=== PATIENT | female | born 1995 | race African-American/Black ===

== ENCOUNTER 2023-02-09 16:16 | Emergency (ER) | payer OTHER, SELFPAY ==
[2023-02-09 16:35] VITALS: BP 139/85; PULSE 71; RESP 16; TEMP 36.2; O2SAT 100; BMI 19.8
--- NOTE | 2023-02-09 17:20 | ED_ITS ---
HPI - Female Genitourinary <Katiana Ness PA-C - Last Filed: 02/09/23 18:25> General Chief complaint: OB/Uterine Contractions Stated complaint: dr haro miscarriage Time Seen by Provider: 02/09/23 16:38 History of Present Illness HPI Narrative: 27-year-old female with no past medical history presents to the ED with abnormal vaginal bleeding for 1 day. Patient states that her periods started yesterday, today she passed a large sac that patient thinks might have been a miscarriage. Patient denies any abdominal or pelvic pain or cramping. Patient denies fever, chills, nausea, vomiting, chest pain, shortness of breath, abdominal pain, pelvic cramping, dysuria, lightheadedness, dizziness, syncope. Patient states that she has not taken a test since her last period. LMP 01/11/2023. Review of Systems <Katiana Ness PA-C - Last Filed: 02/09/23 18:25> Review of Systems ROS Unobtainable: All systems reviewed & are unremarkable except as noted in HPI and below Constitutional Constitutional: Denies chills, Denies fatigue, Denies fever(s), Denies frequent falls, Denies lethargy and Denies weakness Eyes Eyes: Denies change in vision, Denies eye discharge, Denies irritation and Denies loss of vision ENT Ears, Nose, Mouth, and Throat: Denies change in voice, Denies dizziness, Denies neck pain, Denies sore throat and Denies throat swelling Cardiovascular Cardiovascular: Denies chest pain, Denies irregular heart rhythm, Denies lightheadedness, Denies palpitations, Denies dyspnea, Denies dyspnea on exertion and Denies orthopnea Respiratory Respiratory: Denies cough, Denies dyspnea, Denies dyspnea on exertion and Denies wheezing Gastrointestinal Gastrointestinal: Denies abdominal pain, Denies change in bowel habits, Denies diarrhea, Denies nausea and Denies vomiting Genitourinary Genitourinary: Reports abnormal menses, Reports abnormal vaginal bleeding, Denies hematuria, Denies flank pain, Denies urinary incontinence and Denies urinary urgency Musculoskeletal Musculoskeletal: Denies back pain, Denies muscle weakness, Denies neck pain, Denies numbness and Denies tingling Integumentary/Breasts Skin/Breast: Denies pruritus, Denies erythema, Denies rash and Denies wounds Neurologic Neurologic: Denies behavioral changes, Denies confusion, Denies dizziness, Denies frequent falls, Denies loss of vision, Denies numbness, Denies tingling and Denies weakness Psychiatric Psychiatric: Denies anxiety, Denies behavioral changes, Denies confusion, Denies depression, Denies homicidal ideation and Denies suicidal ideation Endocrine Endocrine: Denies fatigue, Denies flushing and Denies palpitations Hematologic/Lymphatic Hematologic/Lymphatic: Denies easy bruising Allergic/Immunologic Allergic/Immunologic: Denies urticaria, Denies throat swelling and Denies wheezing Exam <Katiana Ness PA-C - Last Filed: 02/09/23 18:25> Narrative Exam Narrative: Const General:?cooperative, healthy appearing and comfortable HENMI Head:?normal to inspection Ears:?hearing grossly normal bilaterally Nose:?external nose normal Face and sinus:?normal facial exam and sinuses nontender Mouth:?oral mucosae normal Throat:?posterior oropharynx normal Eyes General:?appearance normal, both eyes and all related structures Neck Neck:?normal visual inspection and no lymphadenopathy noted Resp Effort & Inspection:?normal respiratory effort Auscultation:?clear to auscultation bilaterally Cardio Rate:?regular rate Rhythm:?regular rhythm GI Abdomen is soft, nondistended, nontender to palpation. Neuro General:?patient alert, patient awake and patient oriented x3 Initial Vital Signs Initial Vital Signs: Vital Signs Temperature 97.1 F L 02/09/23 16:35 Pulse Rate 71 02/09/23 16:35 Respiratory Rate 16 02/09/23 16:35 Blood Pressure 139/85 02/09/23 16:35 Pulse Oximetry 100 02/09/23 16:35 Oxygen Delivery Method Room Air 02/09/23 16:35 <Bin Cárdenas DO - Last Filed: 02/09/23 18:26> Initial Vital Signs Initial Vital Signs: Vital Signs Temperature 97.1 F L 02/09/23 16:35 Pulse Rate 71 02/09/23 16:35 Respiratory Rate 16 02/09/23 16:35 Blood Pressure 139/85 02/09/23 16:35 Pulse Oximetry 100 02/09/23 16:35 Oxygen Delivery Method Room Air 02/09/23 16:35 Course <ASTRID Mcqueen Last Filed: 05/02/23 18:25> Vital Signs Vital signs: Vital Signs - 8 hr 02/09/23 16:35 02/09/23 18:21 Temperature 97.1 F L Pulse Rate 71 72 Respiratory Rate 16 Blood Pressure 139/85 122/65 Pulse Oximetry 100 99 Oxygen Delivery Method Room Air Room Air <Bin Cárdenas DO - Last Filed: 02/09/23 18:26> Vital Signs Vital signs: Vital Signs - 8 hr 02/09/23 16:35 02/09/23 18:21 Temperature 97.1 F L Pulse Rate 71 72 Respiratory Rate 16 Blood Pressure 139/85 122/65 Pulse Oximetry 100 99 Oxygen Delivery Method Room Air Room Air MDM - Female Genitourinary <Katiana Ness PA-C - Last Filed: 02/09/23 18:25> Lab Data Labs: Point of Care Testing Test Results Negative MDM Narrative Medical decision making narrative: 27-year-old female with no past medical history presents to the ED with abnormal vaginal bleeding for 1 day. Concern for intrauterine versus miscarriage versus dysfunctional uterine bleeding versus normal period vs other. Will obtain urine hCG to determine if . Urine hCG is negative. Patient's symptoms are likely due to abnormal vaginal bl eeding such as a clot. Patient agrees to follow-up with her OBGYN and PCP. ED return precautions were discussed with patient. Patient verbalized understanding. Medical records reviewed: Yes <DO Chaz Ramos Last Filed: 02/09/23 18:26> Lab Data Labs: Point of Care Testing Test Results Negative Discharge Plan Departure Patient Disposition: Home Clinical Impression: Abnormal vaginal bleeding Instructions: DI for Vaginal Bleeding Activity Restrictions/Additional Instructions: You were evaluated in the ED today for abnormal vaginal bleeding and possible miscarriage. Your urine test does not show a and therefore you did not suffer a miscarriage. You likely passed a clot that appeared similar to a sac. It is also reassuring that you have no pelvic cramping and that your bleeding is not heavier than normal. Please follow-up with your PCP or OBGYN for further evaluation of the abnormal bleeding. Return to the ED if you experience heavy bleeding, pain, shortness of breath. Stand Alone Forms: Patient Portal/API, Work Release Note <DO Chaz Ramos Last Filed: 02/09/23 18:26> Cosign ED Attending Cosignature Attestation: Dr Cárdenas Co-Sign Statement: I was available for consultation during this patient's emergency department visit. This chart is signed by myself for administrative purposes only. I did not have direct contact with this patient during this visit. They were seen independently by the APC.
[2023-02-09 18:21] VITALS: BP 122/65; PULSE 72; O2SAT 99
== END 2023-02-09 18:38 | disposition home or self-care (01) ==
PROVIDERS: Emergency Provider Student in an Organized Health Care Education/Training Program
DX: N93.9 Abnormal uterine and vaginal bleeding, unspecified (principal)
CPT/HCPCS: 81025; 99282

== ENCOUNTER 2023-04-22 08:45 | Emergency (ER) | payer OTHER, SELFPAY ==
[2023-04-22] VITALS (10 sets, daily range): BP systolic 109–124; BP diastolic 65–77; PULSE 66–92; RESP 20; TEMP 36.7; O2SAT 96–100; BMI 21.2
--- NOTE | 2023-04-22 09:14 | DI.US.S_ITS ---
PROCEDURE: US OB <= 14 WEEKS FETUS INDICATIONS: Preg+ 3 days ago, vag bleeding OUTSIDE/PRIOR DATING DATA: Last menstrual period (LMP): 03/15/2023. LMP-based estimated date of delivery (DUSTY): 12/20/2023. First dating scan (date and location): 04/22/2023. Estimated date of delivery (DUSTY) from first dating scan: 12/13/2022. TECHNIQUE: Real-time scanning was performed of the fetus and maternal pelvic organs, with image documentation. COMPARISON: None. FINDINGS: Embryo: Single live intrauterine is identified with crown-rump length measuring 6 mm corresponding to 6 weeks 2 days. Subchorionic hemorrhage is present measuring 9 x 11 x 5 mm. Heart rate: 128 beats per minute Maternal organs: Ovaries are unremarkable. Mild free fluid is present within the cul-de-sac.. IMPRESSION: Single live intrauterine with ultrasound gestational age of 6 weeks 2 days. Small subchorionic hemorrhage. We strive to produce accurate, complete, and clear reports of imaging services. To assist us in improving patient care, this report was composed using standard report templates and voice recognition software. Therefore, it may contain abnormal punctuation, insertions and/or omissions. Occasional wrong-word or sound-alike substitutions may occur. Though we review the report and make efforts to correct it, we do recommend that the report be read carefully in proper context to recognize any text inaccuracies. Dictated by: Kim Saldivar M.D. on 04/22/2023 at 10:36 Approved by: Kim Saldivar M.D. on 04/22/2023 at 10:38
[2023-04-22 09:49] LABS: Add Manual Diff / Slide Review NO; Basophils Absolute Auto 0 /uL (0-100); Basophils Percent Auto 0.6 % (0-2); Eosinophils Absolute Auto 400 /uL (0-450); Eosinophils Percent Auto 8.3 % (2-4); Hematocrit 34.1 % (36-46); Hemoglobin 11.2 g/dL (12.0-16.0); Lymphocytes Absolute Auto 1400 /uL (1100-4500); Lymphocytes Percent Auto 28.1 % (25-40); Mean Corpuscular Hemoglobin 28.4 PG (26-34); Mean Corpuscular Volume 86.1 fL (80-100); Monocytes Absolute Auto 600 /uL (0-900); Monocytes Percent Auto 11.8 % (3-14); Neutrophils Absolute Auto 2600 /uL (1500-7000); Neutrophils Percent Auto 51.2 % (50-75); Platelet Count 161 X10^3/uL (150-400); Red Blood Cell Count 3.96 X10^6/uL (4.0-5.2); Red Cell Distribution Width 15.8 % (11.6-14.8); White Blood Cell Count 5.1 X10^3/uL (4.5-11.0)
[2023-04-22 10:51] LABS: Alanine Aminotransferase 17 IU/L (<35); Albumin 3.9 g/dL (3.5-5.0); Albumin Globulin Ratio 1.1 (1.0-2.8); Alkaline Phosphatase 45 U/L (38-126); Aspartate Aminotransferase 33 IU/L (14-36); BUN Creatinine Ratio 8.6 (6-22); Bilirubin Total 0.7 mg/dL (0.2-1.3); Blood Urea Nitrogen 5 mg/dL (7-17); Calcium 8.6 mg/dL (8.4-10.2); Carbon Dioxide 21 mmol/L (22-32); Chloride 107 mmol/L (98-107); Estimated Glomerular Filt Rate > 60 mL/min (>60); Globulin 3.4 g/dL (1.7-4.1); Glucose 85 mg/dL (70-100); HEMOLYSIS < 15 (0-50); Potassium 3.6 mmol/L (3.4-5.1); Sodium 136 mmol/L (137-145); Total Protein 7.3 g/dL (6.3-8.2)
--- NOTE | 2023-04-22 11:01 | ED_ITS ---
HPI - General Chief complaint: Vaginal Bleeding Stated complaint: cramping/bleeding after + preg test Time Seen by Provider: 04/22/23 10:36 Source: patient and family Mode of arrival: Ambulatory Limitations: no limitations History of Present Illness HPI Narrative: 27-year-old female with no reported past medical history presents to the ED with vaginal bleeding during . Patient states that she had 1 episode of a small amount of bleeding yesterday accompanied by some pelvic cramping. Since then, patient has symptoms have resolved and she no longer has bleeding or pelvic cramping. Patient denies any other symptoms including fevers, chills, chest pain, shortness of breath, abdominal pain, nausea, vomiting, dysuria, lightheadedness, dizziness, syncope. Patient states that she took a home test 3 days ago which was positive. LMP 03/15/2023. Related Data Allergies Allergy/AdvReac Type Severity Reaction Status Date / Time No Known Drug Allergies Allergy Verified 04/22/23 10:45 Review of Systems Review of Systems ROS Unobtainable: All systems reviewed & are unremarkable except as noted in HPI and below Constitutional Constitutional: Denies chills, Denies fatigue, Denies fever(s), Denies frequent falls, Denies lethargy and Denies weakness Eyes Eyes: Denies change in vision, Denies eye discharge, Denies irritation and Denies loss of vision ENT Ears, Nose, Mouth, and Throat: Denies change in voice, Denies dizziness, Denies neck pain, Denies sore throat and Denies throat swelling Cardiovascular Cardiovascular: Denies chest pain, Denies irregular heart rhythm, Denies lightheadedness, Denies palpitations, Denies dyspnea, Denies dyspnea on exertion and Denies orthopnea Respiratory Respiratory: Denies cough, Denies dyspnea, Denies dyspnea on exertion and Denies wheezing Gastrointestinal Gastrointestinal: Denies abdominal pain, Denies change in bowel habits, Denies diarrhea, Denies nausea and Denies vomiting Genitourinary Genitourinary: Reports abnormal vaginal bleeding, Denies hematuria, Reports pelvic pain, Denies flank pain, Denies urinary incontinence and Denies urinary urgency Musculoskeletal Musculoskeletal: Denies back pain, Denies muscle weakness, Denies neck pain, Denies numbness and Denies tingling Integumentary/Breasts Skin/Breast: Denies pruritus, Denies erythema, Denies rash and Denies wounds Neurologic Neurologic: Denies behavioral changes, Denies confusion, Denies dizziness, Denies frequent falls, Denies loss of vision, Denies numbness, Denies tingling and Denies weakness Psychiatric Psychiatric: Denies anxiety, Denies behavioral changes, Denies confusion, Denies depression, Denies homicidal ideation and Denies suicidal ideation Endocrine Endocrine: Denies fatigue, Denies flushing and Denies palpitations Hematologic/Lymphatic Hematologic/Lymphatic: Denies easy bruising Allergic/Immunologic Allergic/Immunologic: Denies urticaria, Denies throat swelling and Denies wheezing Exam Narrative Exam Narrative: Const General:?cooperative, healthy appearing and comfortable [facility] Head:?normal to inspection Ears:?hearing grossly normal bilaterally Nose:?external nose normal Face and sinus:?normal facial exam and sinuses nontender Mouth:?oral mucosae normal Throat:?posterior oropharynx normal Eyes General:?appearance normal, both eyes and all related structures Neck Neck:?normal visual inspection and no lymphadenopathy noted Resp Effort & Inspection:?normal respiratory effort Auscultation:?clear to auscultation bilaterally Cardio Rate:?regular rate Rhythm:?regular rhythm GI Abdomen is soft, nondistended, nontender to palpation. Neuro General:?patient alert, patient awake and patient oriented x3 Initial Vital Signs Initial Vital Signs: Vital Signs Pulse Rate 86 04/22/23 08:56 Pulse Oximetry 99 04/22/23 08:56 Course Orders Ordered: ED Orders 04/22/23 10:19 Comprehensive Metabolic Panel Stat HCG Quantitative /Beta subunit Stat Vital Signs Vital signs: Vital Signs - 8 hr 04/22/23 11:30 04/22/23 11:30 04/22/23 12:00 Pulse Rate 74 Blood Pressure 112/70 109/68 Pulse Oximetry 97 04/22/23 12:00 Pulse Rate 89 Blood Pressure Pulse Oximetry 97 MDM - OB/Uterine Contractions Lab Data 04/22/23 09:30 04/22/23 10:19 Labs: Lab Results 04/22/23 04/22/23 04/22/23 Range/Units 09:30 09:30 10:19 WBC 5.1 (4.5-11.0) X10^3/uL RBC 3.96 L (4.0-5.2) X10^6/uL Hgb 11.2 L (12.0-16.0) g/dL Hct 34.1 L (36-46) % MCV 86.1 (80-100) fL MCH 28.4 (26-34) PG MCHC 33.0 (30-36) % RDW 15.8 H (11.6-14.8) % Plt Count 161 (150-400) X10^3/uL Neut % (Auto) 51.2 (50-75) % Lymph % (Auto) 28.1 (25-40) % [place] % (Auto) 11.8 (3-14) % Eos % (Auto) 8.3 H (2-4) % Baso % (Auto) 0.6 (0-2) % Neut # (Auto) 2600 (0123-0694) /uL Lymph # (Auto) 1400 (9887-2105) /uL [place] # (Auto) 600 (0-900) /uL Eos # (Auto) 400 (0-450) /uL Baso # (Auto) 0 (0-100) /uL Sodium 136 L (137-145) mmol/L Potassium 3.6 (3.4-5.1) mmol/L Chloride 107 (98-107) mmol/L Carbon Dioxide 21 L (22-32) mmol/L BUN 5 L (7-17) mg/dL Creatinine 0.58 (0.52-1.04) mg/dL Estimated GFR > 60 (>60) mL/min BUN/Creatinine Ratio 8.6 (6-22) Glucose 85 (70-100) mg/dL Calcium 8.6 (8.4-10.2) mg/dL Total Bilirubin 0.7 (0.2-1.3) mg/dL AST 33 (14-36) IU/L ALT 17 (<35) IU/L Alkaline Phosphatase 45 (38-126) U/L Total Protein 7.3 (6.3-8.2) g/dL Albumin 3.9 (3.5-5.0) g/dL Globulin 3.4 (1.7-4.1) g/dL Albumin/Globulin Ratio 1.1 (1.0-2.8) HCG, Quant 3384.9 mIU/mL Blood Type A Positive Antibody Screen Cancelled Urine Dip Bedside Urine Glucose Negative Bedside Urine Bilirubin - Negative Bedside Urine Ketone - Negative Urine Specific [place] 1.005 Bedside Urine Occult Blood - Negative Bedside Urine pH 7 Bedside Urine Protein - Negative Bedside Urine Urobilinogen - Negative Bedside Urine Nitrite - Negative Bedside Urine Leukocytes - Negative Esterase MDM Narrative Medical decision making narrative: 27-year-old female with no reported past medical history presents to the ED with vaginal bleeding during . Concern for intrauterine versus ectopic versus threatened miscarriage versus other. Will obtain labs, quantitative HCG, type and screen, UA, ultrasound. Labs within normal limits. Quantitative hCG 3384. UA without UTI. Patient is blood type A positive, no indication for Rhogam. ultrasound shows a single live intrauterine corresponding to a gestational age of 6 weeks and 2 days. There is a subchorionic hemorrhage that is measuring 9 x 11 x 5 mm. heart rate is 128 beats per minute. Discussed findings with patient that a subchorionic bleed could be benign and her could progress normally, however there is still a possibility of miscarriage. Patient agrees to follow-up with her OBGYN to further track the and trend the hCG. ED return precautions were discussed with patient. Patient verbalized understanding. Medical records reviewed: Yes Discharge Plan Departure Patient Disposition: Home Clinical Impression: Vaginal bleeding during Instructions: DI for Vaginal Bleeding During Activity Restrictions/Additional Instructions: You were evaluated in the ED today for vaginal bleeding during . The ultrasound does show a live intrauterine that is dated at 6 weeks and 2 days. There is also some subchorionic hemorrhage which is the likely cause of your bleeding today. While a subchorionic hemorrhage could be benign, and your can progress normally, there is also a possibility of a miscarriage. Your hCG quantitative today was 3384. Please follow-up with your OBGYN so they can continue to track your and the hCG. Return to the ED if you have worsening symptoms, increased bleeding, cramping. Referrals: Provider,Arcelia GRIFFITH [Primary Care Provider] - Stand Alone Forms: Patient Portal/API, Work Release Note
[2023-04-22 11:09] LABS: HCG Quantitative /Beta subunit 3384.9 mIU/mL
== END 2023-04-22 12:14 | disposition home or self-care (01) ==
PROVIDERS: Emergency Medicine; Emergency Provider Student in an Organized Health Care Education/Training Program
DX: O20.9 Hemorrhage in early pregnancy, unspecified (principal); Z3A.01 Less than 8 weeks gestation of pregnancy
CPT/HCPCS: 36415; 76801; 76817; 80053; 81003; 84702; 85025; 86900; 86901; 99284

== ENCOUNTER 2023-05-04 11:59 | Emergency (ER) | payer OTHER, SELFPAY ==
[2023-05-04 12:18] VITALS: BP 105/64; PULSE 77; RESP 18; TEMP 36.6; O2SAT 100; BMI 21.6
--- NOTE | 2023-05-04 12:45 | DI.US.S_ITS ---
PROCEDURE: US OB <= 14 WEEKS FETUS INDICATIONS: BLEEDING, CRAMPING OUTSIDE/PRIOR DATING DATA: Last menstrual period (LMP): 03/15/2023 LMP-based estimated date of delivery (DUSTY): 12/20/2023 First dating scan (date and location): 04/22/2023 Estimated date of delivery (DUSTY) from first dating scan: 12/14/2023 The calculations are made using the ultrasound DUSTY of 12/14/2023 TECHNIQUE: Real-time scanning was performed of the fetus and maternal pelvic organs, with image documentation. COMPARISON: [facility], OB <= 14 WEEKS FETUS, 04/22/2023, 9:41. FINDINGS: Embryo: Intrauterine gestational sac is again seen with pole. [place]-rump length is 1.5 cm, compatible with an estimated gestational age of 7 weeks 6 days (estimated gestational age by prior ultrasound is 8 weeks 0 days). Heart rate: No cardiac activity is seen. Maternal organs: Ovaries were not evaluated. IMPRESSION: Intrauterine is seen with no cardiac activity, consistent with early failure. Approved by: Dale Alex M.D. on 05/04/2023 at 14:27
[2023-05-04 13:19] LABS: Add Manual Diff / Slide Review NO; Basophils Absolute Auto 0 /uL (0-100); Basophils Percent Auto 0.6 % (0-2); Eosinophils Absolute Auto 400 /uL (0-450); Eosinophils Percent Auto 5.4 % (2-4); Hematocrit 36.1 % (36-46); Hemoglobin 11.8 g/dL (12.0-16.0); Lymphocytes Absolute Auto 1900 /uL (1100-4500); Lymphocytes Percent Auto 28.6 % (25-40); Mean Corpuscular HGB Conc 32.7 % (30-36); Mean Corpuscular Hemoglobin 28.4 PG (26-34); Mean Corpuscular Volume 86.8 fL (80-100); Monocytes Absolute Auto 600 /uL (0-900); Monocytes Percent Auto 9.2 % (3-14); Neutrophils Absolute Auto 3800 /uL (1500-7000); Neutrophils Percent Auto 56.2 % (50-75); Platelet Count 167 X10^3/uL (150-400); Red Blood Cell Count 4.16 X10^6/uL (4.0-5.2); Red Cell Distribution Width 15.2 % (11.6-14.8); White Blood Cell Count 6.8 X10^3/uL (4.5-11.0)
[2023-05-04 13:22] LABS: Bacteria Urine None Seen; Culture Indicated Urine Cult Not Indicated; RBC Urine 5-10/HPF (0-5/HPF); Squamous Epithelial Cell Urine 0-1 /HPF (0-5/HPF); WBC Urine 0-1/HPF (0-5/HPF)
[2023-05-04 13:23] LABS: Alanine Aminotransferase 19 IU/L (<35); Albumin 4.4 g/dL (3.5-5.0); Albumin Globulin Ratio 1.2 (1.0-2.8); Alkaline Phosphatase 47 U/L (38-126); Aspartate Aminotransferase 35 IU/L (14-36); BUN Creatinine Ratio 11.5 (6-22); Bilirubin Total 0.5 mg/dL (0.2-1.3); Blood Urea Nitrogen 7 mg/dL (7-17); Calcium 9.1 mg/dL (8.4-10.2); Carbon Dioxide 24 mmol/L (22-32); Chloride 103 mmol/L (98-107); Estimated Glomerular Filt Rate > 60 mL/min (>60); Globulin 3.7 g/dL (1.7-4.1); Glucose 83 mg/dL (70-100); HEMOLYSIS < 15 (0-50); Potassium 3.9 mmol/L (3.4-5.1); Sodium 136 mmol/L (137-145); Total Protein 8.1 g/dL (6.3-8.2)
[2023-05-04 13:39] LABS: HCG Quantitative /Beta subunit 5471.1 mIU/mL
[2023-05-04 15:49] VITALS: BP 109/63; PULSE 78; RESP 18; O2SAT 96
--- NOTE | 2023-05-04 18:51 | ED_ITS ---
HPI - <Katiana Ness PA-C - Last Filed: 05/04/23 18:57> General Chief complaint: OB/Uterine Contractions Stated complaint: complications with Time Seen by Provider: 05/04/23 15:30 Source: patient Mode of arrival: Ambulatory Limitations: no limitations History of Present Illness HPI Narrative: 27-year-old female with no reported past medical history presents to the ED with vaginal bleeding during . Patient was seen in the ED on 04/22/2023 for the same complaint, ultrasound was obtained which showed a live intrauterine that was dated at 6 weeks and 2 days' gestation. There was also some subchorionic hemorrhage which was likely the cause of patient's bleeding. Patient thereafter consulted her OBGYN, a repeat ultrasound and hCG were obtained. Patient stated that her bleeding ceased after that last visit, however last night against started experiencing pelvic cramping and vaginal bleeding. Patient denies fever, chills, nausea, vomiting. Patient is blood type A positive. Related Data Allergies Allergy/AdvReac Type Severity Reaction Status Date / Time No Known Drug Allergies Allergy Verified 04/22/23 10:45 Review of Systems <Katiana Ness PA-C - Last Filed: 05/04/23 18:57> Review of Systems ROS Unobtainable: All systems reviewed & are unremarkable except as noted in HPI and below Constitutional Constitutional: Denies chills, Denies fatigue, Denies fever(s), Denies frequent falls, Denies lethargy and Denies weakness Eyes Eyes: Denies change in vision, Denies eye discharge, Denies irritation and Denies loss of vision ENT Ears, Nose, Mouth, and Throat: Denies change in voice, Denies dizziness, Denies neck pain, Denies sore throat and Denies throat swelling Cardiovascular Cardiovascular: Denies chest pain, Denies irregular heart rhythm, Denies lightheadedness, Denies palpitations, Denies dyspnea, Denies dyspnea on exertion and Denies orthopnea Respiratory Respiratory: Denies cough, Denies dyspnea, Denies dyspnea on exertion and Denies wheezing Gastrointestinal Gastrointestinal: Denies abdominal pain, Denies change in bowel habits, Denies diarrhea, Denies nausea and Denies vomiting Genitourinary Genitourinary: Reports abnormal vaginal bleeding, Denies hematuria, Reports pelvic pain, Denies flank pain, Denies urinary incontinence and Denies urinary urgency Musculoskeletal Musculoskeletal: Denies back pain, Denies muscle weakness, Denies neck pain, Denies numbness and Denies tingling Integumentary/Breasts Skin/Breast: Denies pruritus, Denies erythema, Denies rash and Denies wounds Neurologic Neurologic: Denies behavioral changes, Denies confusion, Denies dizziness, Denies frequent falls, Denies loss of vision, Denies numbness, Denies tingling and Denies weakness Psychiatric Psychiatric: Denies anxiety, Denies behavioral changes, Denies confusion, Denies depression, Denies homicidal ideation and Denies suicidal ideation Endocrine Endocrine: Denies fatigue, Denies flushing and Denies palpitations Hematologic/Lymphatic Hematologic/Lymphatic: Denies easy bruising Allergic/Immunologic Allergic/Immunologic: Denies urticaria, Denies throat swelling and Denies wheezing Exam <Katiana Ness PA-C - Last Filed: 05/04/23 18:57> Narrative Exam Narrative: Const General:?cooperative, healthy appearing and comfortable [facility] Head:?normal to inspection Ears:?hearing grossly normal bilaterally Nose:?external nose normal Face and sinus:?normal facial exam and sinuses nontender Mouth:?oral mucosae normal Throat:?posterior oropharynx normal Eyes General:?appearance normal, both eyes and all related structures Neck Neck:?normal visual inspection and no lymphadenopathy noted Resp Effort & Inspection:?normal respiratory effort Auscultation:?clear to auscultation bilaterally Cardio Rate:?regular rate Rhythm:?regular rhythm GI Abdomen is soft, nondistended. No tenderness to palpation. Neuro General:?patient alert, patient awake and patient oriented x3 Initial Vital Signs Initial Vital Signs: Vital Signs Temperature 97.8 F 05/04/23 12:18 Pulse Rate 77 05/04/23 12:18 Respiratory Rate 18 05/04/23 12:18 Blood Pressure 105/64 05/04/23 12:18 Pulse Oximetry 100 05/04/23 12:18 Oxygen Delivery Method Room Air 05/04/23 12:18 <Leland Badillo MD - Last Filed: 05/05/23 07:14> Initial Vital Signs Initial Vital Signs: Vital Signs Temperature 97.8 F 05/04/23 12:18 Pulse Rate 77 05/04/23 12:18 Respiratory Rate 18 05/04/23 12:18 Blood Pressure 105/64 05/04/23 12:18 Pulse Oximetry 100 05/04/23 12:18 Oxygen Delivery Method Room Air 05/04/23 12:18 Course <Katiana Ness PA-C - Last Filed: 05/04/23 18:57> Orders Ordered: ED Orders 05/04/23 12:45 US OB <= 14 weeks fetus Stat 05/04/23 12:55 Urine Microscopic Stat 05/04/23 13:00 Complete Blood Count AUTO DIFF Stat Comprehensive Metabolic Panel Stat HCG Quantitative /Beta subunit Stat Type and Screen Stat Vital Signs Vital signs: Vital Signs - 8 hr 05/04/23 12:18 05/04/23 15:49 Temperature 97.8 F Pulse Rate 77 78 Respiratory Rate 18 18 Blood Pressure 105/64 109/63 Pulse Oximetry 100 96 Oxygen Delivery Method Room Air Room Air <Leland Badillo MD - Last Filed: 05/05/23 07:14> Orders Ordered: ED Orders 05/04/23 12:45 US OB <= 14 weeks fetus Stat 05/04/23 12:55 Urine Microscopic Stat 05/04/23 13:00 Complete Blood Count AUTO DIFF Stat Comprehensive Metabolic Panel Stat HCG Quantitative /Beta subunit Stat Type and Screen Stat Vital Signs Vital signs: Vital Signs - 8 hr 05/04/23 12:18 05/04/23 15:49 Temperature 97.8 F Pulse Rate 77 78 Respiratory Rate 18 18 Blood Pressure 105/64 109/63 Pulse Oximetry 100 96 Oxygen Delivery Method Room Air Room Air MDM - OB/Uterine Contractions <Katiana Ness PA-C - Last Filed: 05/04/23 18:57> Lab Data 05/04/23 13:00 05/04/23 13:00 Labs: Lab Results 05/04/23 05/04/23 05/04/23 Range/Units 12:55 13:00 13:00 WBC 6.8 (4.5-11.0) X10^3/uL RBC 4.16 (4.0-5.2) X10^6/uL Hgb 11.8 L (12.0-16.0) g/dL Hct 36.1 (36-46) % MCV 86.8 (80-100) fL MCH 28.4 (26-34) PG MCHC 32.7 (30-36) % RDW 15.2 H (11.6-14.8) % Plt Count 167 (150-400) X10^3/uL Neut % (Auto) 56.2 (50-75) % Lymph % (Auto) 28.6 (25-40) % [place] % (Auto) 9.2 (3-14) % Eos % (Auto) 5.4 H (2-4) % Baso % (Auto) 0.6 (0-2) % Neut # (Auto) 3800 (3503-0073) /uL Lymph # (Auto) 1900 (5477-6022) /uL [place] # (Auto) 600 (0-900) /uL Eos # (Auto) 400 (0-450) /uL Baso # (Auto) 0 (0-100) /uL Sodium 136 L (137-145) mmol/L Potassium 3.9 (3.4-5.1) mmol/L Chloride 103 (98-107) mmol/L Carbon Dioxide 24 (22-32) mmol/L BUN 7 (7-17) mg/dL Creatinine 0.61 (0.52-1.04) mg/dL Estimated GFR > 60 (>60) mL/min BUN/Creatinine Ratio 11.5 (6-22) Glucose 83 (70-100) mg/dL Calcium 9.1 (8.4-10.2) mg/dL Total Bilirubin 0.5 (0.2-1.3) mg/dL AST 35 (14-36) IU/L ALT 19 (<35) IU/L Alkaline Phosphatase 47 (38-126) U/L Total Protein 8.1 (6.3-8.2) g/dL Albumin 4.4 (3.5-5.0) g/dL Globulin 3.7 (1.7-4.1) g/dL Albumin/Globulin Ratio 1.2 (1.0-2.8) HCG, Quant 5471.1 mIU/mL Urine RBC 5-10/hpf H (0-5/HPF) Urine WBC 0-1/hpf (0-5/HPF) Ur Squamous Epith Cells 0-1 /hpf (0-5/HPF) Urine Bacteria None seen (None) Ur Culture Indicated? Cult not indicated Blood Type Antibody Screen 05/04/23 Range/Units 13:00 WBC (4.5-11.0) X10^3/uL RBC (4.0-5.2) X10^6/uL Hgb (12.0-16.0) g/dL Hct (36-46) % MCV (80-100) fL MCH (26-34) PG MCHC (30-36) % RDW (11.6-14.8) % Plt Count (150-400) X10^3/uL Neut % (Auto) (50-75) % Lymph % (Auto) (25-40) % [place] % (Auto) (3-14) % Eos % (Auto) (2-4) % Baso % (Auto) (0-2) % Neut # (Auto) (0390-9241) /uL Lymph # (Auto) (9902-9381) /uL [place] # (Auto) (0-900) /uL Eos # (Auto) (0-450) /uL Baso # (Auto) (0-100) /uL Sodium (137-145) mmol/L Potassium (3.4-5.1) mmol/L Chloride (98-107) mmol/L Carbon Dioxide (22-32) mmol/L BUN (7-17) mg/dL Creatinine (0.52-1.04) mg/dL Estimated GFR (>60) mL/min BUN/Creatinine Ratio (6-22) Glucose (70-100) mg/dL Calcium (8.4-10.2) mg/dL Total Bilirubin (0.2-1.3) mg/dL AST (14-36) IU/L ALT (<35) IU/L Alkaline Phosphatase (38-126) U/L Total Protein (6.3-8.2) g/dL Albumin (3.5-5.0) g/dL Globulin (1.7-4.1) g/dL Albumin/Globulin Ratio (1.0-2.8) HCG, Quant mIU/mL Urine RBC (0-5/HPF) Urine WBC (0-5/HPF) Ur Squamous Epith Cells (0-5/HPF) Urine Bacteria (None) Ur Culture Indicated? Blood Type A Positive Antibody Screen Negative Urine Dip Bedside Urine Glucose Negative Bedside Urine Bilirubin - Negative Bedside Urine Ketone - Negative Urine Specific [place] 1.005 Bedside Urine Occult Blood +++ Bedside Urine pH 7.5 Bedside Urine Protein - Negative Bedside Urine Urobilinogen - Negative Bedside Urine Nitrite - Negative Bedside Urine Leukocytes - Negative Esterase MDM Narrative Medical decision making narrative: 27-year-old female with no reported past medical history presents to the ED with vaginal bleeding during . Concern for intrauterine versus threatened miscarriage versus other. Will obtain labs, quantitative HCG, UA, ultrasound. Labs and urine within normal limits. HCG quantitative is 5471. Ultrasound shows a intrauterine with no cardiac activity, consistent with early failure. Findings discussed with patient. She agrees to follow-up with her OBGYN as soon as possible for further evaluation and potential interventions. ED return precautions were discussed with patient. Patient verbalized understanding. Medical records reviewed: Yes <Leland Badillo MD - Last Filed: 05/05/23 07:14> Lab Data Labs: Lab Results 05/04/23 05/04/23 05/04/23 Range/Units 12:55 13:00 13:00 WBC 6.8 (4.5-11.0) X10^3/uL RBC 4.16 (4.0-5.2) X10^6/uL Hgb 11.8 L (12.0-16.0) g/dL Hct 36.1 (36-46) % MCV 86.8 (80-100) fL MCH 28.4 (26-34) PG MCHC 32.7 (30-36) % RDW 15.2 H (11.6-14.8) % Plt Count 167 (150-400) X10^3/uL Neut % (Auto) 56.2 (50-75) % Lymph % (Auto) 28.6 (25-40) % [place] % (Auto) 9.2 (3-14) % Eos % (Auto) 5.4 H (2-4) % Baso % (Auto) 0.6 (0-2) % Neut # (Auto) 3800 (4376-7296) /uL Lymph # (Auto) 1900 (3501-6949) /uL [place] # (Auto) 600 (0-900) /uL Eos # (Auto) 400 (0-450) /uL Baso # (Auto) 0 (0-100) /uL Sodium 136 L (137-145) mmol/L Potassium 3.9 (3.4-5.1) mmol/L Chloride 103 (98-107) mmol/L Carbon Dioxide 24 (22-32) mmol/L BUN 7 (7-17) mg/dL Creatinine 0.61 (0.52-1.04) mg/dL Estimated GFR > 60 (>60) mL/min BUN/Creatinine Ratio 11.5 (6-22) Glucose 83 (70-100) mg/dL Calcium 9.1 (8.4-10.2) mg/dL Total Bilirubin 0.5 (0.2-1.3) mg/dL AST 35 (14-36) IU/L ALT 19 (<35) IU/L Alkaline Phosphatase 47 (38-126) U/L Total Protein 8.1 (6.3-8.2) g/dL Albumin 4.4 (3.5-5.0) g/dL Globulin 3.7 (1.7-4.1) g/dL Albumin/Globulin Ratio 1.2 (1.0-2.8) HCG, Quant 5471.1 mIU/mL Urine RBC 5-10/hpf H (0-5/HPF) Urine WBC 0-1/hpf (0-5/HPF) Ur Squamous Epith Cells 0-1 /hpf (0-5/HPF) Urine Bacteria None seen (None) Ur Culture Indicated? Cult not indicated Blood Type Antibody Screen 05/04/23 Range/Units 13:00 WBC (4.5-11.0) X10^3/uL RBC (4.0-5.2) X10^6/uL Hgb (12.0-16.0) g/dL Hct (36-46) % MCV (80-100) fL MCH (26-34) PG MCHC (30-36) % RDW (11.6-14.8) % Plt Count (150-400) X10^3/uL Neut % (Auto) (50-75) % Lymph % (Auto) (25-40) % [place] % (Auto) (3-14) % Eos % (Auto) (2-4) % Baso % (Auto) (0-2) % Neut # (Auto) (7448-0603) /uL Lymph # (Auto) (4375-1685) /uL [place] # (Auto) (0-900) /uL Eos # (Auto) (0-450) /uL Baso # (Auto) (0-100) /uL Sodium (137-145) mmol/L Potassium (3.4-5.1) mmol/L Chloride (98-107) mmol/L Carbon Dioxide (22-32) mmol/L BUN (7-17) mg/dL Creatinine (0.52-1.04) mg/dL Estimated GFR (>60) mL/min BUN/Creatinine Ratio (6-22) Glucose (70-100) mg/dL Calcium (8.4-10.2) mg/dL Total Bilirubin (0.2-1.3) mg/dL AST (14-36) IU/L ALT (<35) IU/L Alkaline Phosphatase (38-126) U/L Total Protein (6.3-8.2) g/dL Albumin (3.5-5.0) g/dL Globulin (1.7-4.1) g/dL Albumin/Globulin Ratio (1.0-2.8) HCG, Quant mIU/mL Urine RBC (0-5/HPF) Urine WBC (0-5/HPF) Ur Squamous Epith Cells (0-5/HPF) Urine Bacteria (None) Ur Culture Indicated? Blood Type A Positive Antibody Screen Negative Urine Dip Bedside Urine Glucose Negative Bedside Urine Bilirubin - Negative Bedside Urine Ketone - Negative Urine Specific [place] 1.005 Bedside Urine Occult Blood +++ Bedside Urine pH 7.5 Bedside Urine Protein - Negative Bedside Urine Urobilinogen - Negative Bedside Urine Nitrite - Negative Bedside Urine Leukocytes - Negative Esterase Discharge Plan Departure Patient Disposition: Home Clinical Impression: Vaginal bleeding during Instructions: DI for Miscarriage Activity Restrictions/Additional Instructions: You were evaluated in the ED today for some pelvic cramping and vaginal bleeding during . The ultrasound shows a gestational sac with a pole but no heartbeat. It is likely that you are experiencing a miscarriage. Please follow-up with your OBGYN as soon as possible for further evaluation for necessary interventions. Return to the ED if you have worsening symptoms. Referrals: Provider,Arcelia GRIFFITH [Primary Care Provider] - Stand Alone Forms: Patient Portal/API <Leland Badillo MD - Last Filed: 05/05/23 07:14> Cosign ED Attending Heath Attestation: I was immediately available in the department for consultation. ?This documentation has been reviewed and I agree with assessment and plan. Supervised by Leland Badillo MD
== END 2023-05-04 15:49 | disposition home or self-care (01) ==
PROVIDERS: Emergency Medicine; Emergency Provider Student in an Organized Health Care Education/Training Program
DX: O20.9 Hemorrhage in early pregnancy, unspecified (principal); R10.2 Pelvic and perineal pain; Z3A.01 Less than 8 weeks gestation of pregnancy
CPT/HCPCS: 36415; 76801; 76817; 80053; 81003; 81015; 84702; 85025; 86850; 86900; 86901; 99281; 99284

== ENCOUNTER → 2023-05-24 16:57 | Outpatient (CLI) | payer OTHER, SELFPAY ==
[2023-05-24 18:20] LABS: Hematocrit 33.8 % (36-46); Hemoglobin 11.3 g/dL (12.0-16.0); Mean Corpuscular HGB Conc 33.5 % (30-36); Mean Corpuscular Volume 86.7 fL (80-100); Red Cell Distribution Width 14.6 % (11.6-14.8); White Blood Cell Count 6.2 X10^3/uL (4.5-11.0)
[2023-05-24 18:47] LABS: Platelet Count 159 X10^3/uL (150-400)
[2023-05-24 18:49] LABS: HCG Quantitative /Beta subunit 2.9 mIU/mL
[2023-05-24 19:01] LABS: TSH w/ Reflex to FT4 1.77 uIU/mL (0.47-4.68)
== END ==
PROVIDERS: Referring Provider Internal Medicine Addiction Medicine; Visit Provider Internal Medicine Addiction Medicine
DX: O03.9 Complete or unspecified spontaneous abortion without complication (principal)
CPT/HCPCS: 36415; 84443; 84702; 85027

== ENCOUNTER 2023-06-25 18:19 | Emergency (ER) | payer OTHER, SELFPAY ==
[2023-06-25 18:37] VITALS: BP 110/67; PULSE 68; RESP 18; TEMP 36.9; O2SAT 100; BMI 18.8
[2023-06-25 19:04] LABS: COVID19 -Nasal RAPID Negative (Negative)
--- NOTE | 2023-06-25 19:21 | ED_ITS ---
HPI - URI/Sore Throat General Chief Complaint: Upper Respiratory Symptoms Stated Complaint: covid testing/SIQ chit/bad cold Time Seen by Provider: 06/25/23 18:22 Source: patient Mode of arrival: Ambulatory History of Present Illness HPI Narrative: 28-year-old female nonsmoker without chronic medical history presents with a significant other and a chief complaint of 5 days or so of various upper respiratory symptoms including some body aches, sore throat the occasional cough. She states that she is been exposed to COVID and has been instructed to come and get a test. She denies any significant work of breathing, she has no nausea, vomiting or diarrhea. Related Data Allergies Allergy/AdvReac Type Severity Reaction Status Date / Time No Known Drug Allergies Allergy Verified 06/25/23 18:42 Review of Systems Review of Systems Narrative: GENERAL: 28[] year old patient appears stated age. Well-developed patient, in mild distress. HEAD: Atraumatic. Normocephalic. EYES: Pupils equal round and reactive. Extraocular motions intact. No scleral icterus. No injection or drainage. ENT: Nose without bleeding, purulent drainage. Throat without erythema, tonsillar hypertrophy or exudate. Airway patent. NECK: Trachea midline. Non tender CARDIOVASCULAR: Regular rate and rhythm without murmurs, gallops, or rubs. RESPIRATORY: Clear to auscultation. Breath sounds equal bilaterally. No wheezes, rales, or rhonchi. GASTROINTESTINAL: Abdomen soft, non-tender, nondistended. EXTREMITIES: No edema or joint tenderness. BACK: Nontender without deformity or crepitance. No flank tenderness. NEURO: AOx3. SKIN: No rash or erythema of visible areas Patient History Social History Smoking Status: Former smoker Smoking Status: Former smoker tobacco type: vaping alcohol intake frequency: a few times a month Substance Use Type: does not use Exam Initial Vital Signs Initial Vital Signs: Vital Signs Temperature 98.5 F 06/25/23 18:37 Pulse Rate 68 06/25/23 18:37 Respiratory Rate 18 06/25/23 18:37 Blood Pressure 110/67 06/25/23 18:37 Pulse Oximetry 100 06/25/23 18:37 Oxygen Delivery Method Room Air 06/25/23 18:37 Course Orders Ordered: ED Orders 06/25/23 18:43 COVID19 -Nasal RAPID Stat Vital Signs Vital signs: Vital Signs - 8 hr 06/25/23 18:37 Temperature 98.5 F Pulse Rate 68 Respiratory Rate 18 Blood Pressure 110/67 Pulse Oximetry 100 Oxygen Delivery Method Room Air MDM - URI/Sore Throat Lab Data Labs: Lab Results 06/25/23 Range/Units 18:43 SARS-CoV-2 (PCR) Negative (Negative) MDM Narrative Medical decision making narrative: [28] year old patient presents with typical upper respiratory symptoms Multiple etiologies for patient's symptoms considered including, but not limited to: COVID versus flu versus other [] Prior Charts reviewed in our EMR Primary Historian: patient Labs reviewed and interpreted by myself: COVID negative Patient history and physical exam are reassuring, various mild upper respiratory symptoms, no vomiting, no increased work of breathing, stable vital signs and a negative COVID. Further testing not indicated Findings and discharge diagnosis discussed with patient/family followed by verbalization of understanding Return precautions discussed with patient/family whom verbalize understanding of diagnosis and plan Discharge Plan Departure Patient Disposition: Home Clinical Impression: Acute viral syndrome Instructions: Common Cold Activity Restrictions/Additional Instructions: *You have been diagnosed with [various symptoms due to viral upper respiratory infection. Your COVID test was negative *What to do: *Please consider the use of [id number] antihistamines such as Zyrtec, Saida, or Claritin which can dry the secretions that are causing many of these symptoms. *Please use [id number] Tylenol or Motrin for pain, it can be helpful to take it on a schedule for a few days to get ahead of the pain and inflammation * your history and physical exam are very reassuring and there is no indication that the symptoms are due to a bacterial infection, therefore there is no indication for antibiotics. *Please follow up with your primary care provider in 2-3 days, call for an appointment. Let them know you were seen in the Emergency Department and that we ask that you be seen in follow up. We will electronically transmit a record of today's note if your PCP is in our system *If you do not have a primary care provider please contact the [facility] Resource line at [phone]. They will ask some questions about your medical history and help get you set up with a doctor in the community. *Return to Emergency Department if you should have any new, worsening or concerning symptoms such as difficulty breathing, persistent vomiting, shaking chills or other concerning symptoms Referrals: ProviderArcelia [Primary Care Provider] - Stand Alone Forms: Patient Portal/API, Work Release Note
== END 2023-06-25 19:31 | disposition home or self-care (01) ==
PROVIDERS: Emergency Provider Emergency Medicine
DX: B34.9 Viral infection, unspecified (principal); Z20.822 Contact with and (suspected) exposure to COVID-19
CPT/HCPCS: 87635; 99281; 99282; C9803

== ENCOUNTER 2023-07-13 19:46 | Emergency (ER) | payer OTHER, SELFPAY ==
--- NOTE | 2023-07-13 19:48 | ED_ITS ---
HPI - General Adult General Chief complaint: OB/Uterine Contractions Stated complaint: poss miscarriage Time Seen by Provider: 07/13/23 19:48 History of Present Illness HPI narrative: 20-year-old female former smoker is a 5 or 6 weeks and presents with a chief complaint of cramping and spotting over the course of the night. She denies any systemic complaints such as dizziness, weakness or lightheadedness. She has no fever or chills. She denies nausea or vomiting. She denies urinary complaints such as dysuria, frequency urgency. Related Data Allergies Allergy/AdvReac Type Severity Reaction Status Date / Time No Known Drug Allergies Allergy Verified 06/25/23 18:42 Review of Systems Review of Systems Narrative: GENERAL: Denies chills, fatigue, malaise, fever, sweats. HEENT: Denies sinus pain, ear pain, sore throat, difficulty swallowing, dizziness. RESPIRATORY: Denies dyspnea, cough, wheezing, hemoptysis, sputum. CARDIOVASCULAR: Denies chest pain, palpitations, orthopnea, edema, GASTROINTESTINAL: Denies nausea, vomiting, abdominal pain, diarrhea, constipation, melena. : See HPI MUSCULOSKELETAL: denies weakness, joint pain, or bony pain SKIN: Denies rash, skin lesions, or other NEUROLOGIC: Denies weakness, headache, numbness, change in speech, confusion, seizures, incoordination. PSYCHIATRIC: No concerning psychosocial issues. 12 point review of systems is negative except for those stated above Patient History Social History Smoking Status: Former smoker Smoking Status: Former smoker tobacco type: vaping alcohol intake frequency: a few times a month Substance Use Type: does not use Exam Narrative Exam Narrative: GENERAL: 28[] year old patient appears stated age. Well-developed patient, in mild distress. HEAD: Atraumatic. Normocephalic. EYES: Pupils equal round and reactive. Extraocular motions intact. No scleral icterus. No injection or drainage. ENT: Nose without bleeding, purulent drainage. Throat without erythema, tonsillar hypertrophy or exudate. Airway patent. NECK: Trachea midline. Non tender CARDIOVASCULAR: Regular rate and rhythm without murmurs, gallops, or rubs. RESPIRATORY: Clear to auscultation. Breath sounds equal bilaterally. No wheezes, rales, or rhonchi. GASTROINTESTINAL: Abdomen soft, non-tender, nondistended. EXTREMITIES: No edema or joint tenderness. BACK: Nontender without deformity or crepitance. No flank tenderness. NEURO: AOx3. SKIN: No rash or erythema of visible areas Initial Vital Signs Initial Vital Signs: Vital Signs Temperature 98.7 F 07/13/23 19:58 Pulse Rate 71 07/13/23 19:58 Respiratory Rate 16 07/13/23 19:58 Blood Pressure 116/61 07/13/23 19:58 Pulse Oximetry 100 07/13/23 19:58 Oxygen Delivery Method Room Air 07/13/23 19:58 Course Orders Ordered: ED Orders 07/13/23 20:27 BMP [Basic Metabolic Panel] Stat Beta HCG, Quant [HCG Quantitative /Beta subunit] Stat CBC Auto Diff [Complete Blood Count AUTO DIFF] Stat 07/13/23 20:51 US OB <= 14 weeks fetus Stat Vital Signs Vital signs: Vital Signs - 8 hr 07/13/23 19:58 07/13/23 22:17 Temperature 98.7 F 98 F Pulse Rate 71 73 Respiratory Rate 16 18 Blood Pressure 116/61 115/56 L Pulse Oximetry 100 98 Oxygen Delivery Method Room Air Room Air Medical Decision Making Lab Data 07/13/23 20:27 07/13/23 20:27 Labs: Lab Results 07/13/23 07/13/23 Range/Units 20:27 20:27 WBC 6.7 (4.5-11.0) X10^3/uL RBC 3.63 L (4.0-5.2) X10^6/uL Hgb 10.8 L (12.0-16.0) g/dL Hct 32.1 L (36-46) % MCV 88.2 (80-100) fL MCH 29.8 (26-34) PG MCHC 33.7 (30-36) % RDW 13.9 (11.6-14.8) % Plt Count 141 L (150-400) X10^3/uL Neut % (Auto) 51.0 (50-75) % Lymph % (Auto) 33.1 (25-40) % [place] % (Auto) 9.8 (3-14) % Eos % (Auto) 5.5 H (2-4) % Baso % (Auto) 0.6 (0-2) % Neut # (Auto) 3400 (8082-7137) /uL Lymph # (Auto) 2200 (5572-3246) /uL [place] # (Auto) 700 (0-900) /uL Eos # (Auto) 400 (0-450) /uL Baso # (Auto) 0 (0-100) /uL Sodium 135 L (137-145) mmol/L Potassium 3.8 (3.4-5.1) mmol/L Chloride 103 (98-107) mmol/L Carbon Dioxide 23 (22-32) mmol/L BUN 9 (7-17) mg/dL Creatinine 0.58 (0.52-1.04) mg/dL Estimated GFR > 60 (>60) mL/min BUN/Creatinine Ratio 15.5 (6-22) Glucose 79 (70-100) mg/dL Calcium 9.1 (8.4-10.2) mg/dL HCG, Quant 17402 mIU/mL Urine Dip Bedside Urine Glucose Negative Bedside Urine Bilirubin - Negative Bedside Urine Ketone - Negative Urine Specific [place] 1.005 Bedside Urine Occult Blood - Negative Bedside Urine pH 7.5 Bedside Urine Protein - Negative Bedside Urine Urobilinogen - Negative Bedside Urine Nitrite - Negative Bedside Urine Leukocytes - Negative Esterase Point of care testing: Urine Dip Bedside Urine Glucose Negative Bedside Urine Bilirubin - Negative Bedside Urine Ketone - Negative Urine Specific [place] 1.005 Bedside Urine Occult Blood - Negative Bedside Urine pH 7.5 Bedside Urine Protein - Negative Bedside Urine Urobilinogen - Negative Bedside Urine Nitrite - Negative Bedside Urine Leukocytes - Negative Esterase MDM Narrative Medical decision making narrative: [28] year old patient presents with vaginal spotting and some cramping over the course of the day, known , approximately 5-6 weeks Multiple etiologies for patient's symptoms considered including, but not limited to: [Implantation bleeding versus miscarriage versus ectopic versus other] Prior Charts reviewed in our EMR Primary Historian: patient Labs reviewed and interpreted by myself: No leukocytosis or left shift, electr olytes and renal function at baseline, hCG 48,933, Rh positive Imaging reviewed: Live IUP at 6 weeks 1 day, heart motion detected Patient's history and physical exam are reassuring, very minimal spotting, no heavy bleeding or pain, no systemic complaints. HCG and imaging correlate with her dates, IUP noted, no evidence of ectopic. No infectious process. Patient appropriate for discharge and encouraged to follow closely with her care team Findings and discharge diagnosis discussed with patient/family followed by verbalization of understanding Return precautions discussed with patient/family whom verbalize understanding of diagnosis and plan Discharge Plan Departure Patient Disposition: Home Clinical Impression: Spotting affecting Instructions: DI for -- Discomforts and Remedies Activity Restrictions/Additional Instructions: *You have been diagnosed with [spotting in . Your labs and imaging are reassuring in the ultrasound demonstrates a living in the uterus measuring about 6 weeks] *What to do: *Please continue to take your regular medications as directed. [ ] New medication prescriptions sent to your pharmacy: [ ] [ ] New medication written as a paper prescription [ ] No new medications given *Please follow up with your primary care provider in 2-3 days, call for an appointment. Let them know you were seen in the Emergency Department and that we ask that you be seen in follow up. We will electronically transmit a record of today's note if your PCP is in our system *If you do not have a primary care provider please contact the [facility] Resource line at [phone]. They will ask some questions about your medical history and help get you set up with a doctor in the community. *Return to Emergency Department if you should have any new, worsening or concerning symptoms, such as [fever greater than 101 F, shaking chills, worsening pain, persistent vomiting or other bothersome symptoms] Referrals: Arcelia Sung [Primary Care Provider] - Stand Alone Forms: Patient Portal/API
[2023-07-13 19:58] VITALS: BP 116/61; PULSE 71; RESP 16; TEMP 37.1; O2SAT 100; BMI 19.8
[2023-07-13 20:39] LABS: Add Manual Diff / Slide Review NO; Basophils Absolute Auto 0 /uL (0-100); Basophils Percent Auto 0.6 % (0-2); Eosinophils Absolute Auto 400 /uL (0-450); Eosinophils Percent Auto 5.5 % (2-4); Hematocrit 32.1 % (36-46); Hemoglobin 10.8 g/dL (12.0-16.0); Lymphocytes Absolute Auto 2200 /uL (1100-4500); Lymphocytes Percent Auto 33.1 % (25-40); Mean Corpuscular HGB Conc 33.7 % (30-36); Mean Corpuscular Hemoglobin 29.8 PG (26-34); Mean Corpuscular Volume 88.2 fL (80-100); Monocytes Absolute Auto 700 /uL (0-900); Monocytes Percent Auto 9.8 % (3-14); Neutrophils Absolute Auto 3400 /uL (1500-7000); Platelet Count 141 X10^3/uL (150-400); Red Blood Cell Count 3.63 X10^6/uL (4.0-5.2); Red Cell Distribution Width 13.9 % (11.6-14.8); White Blood Cell Count 6.7 X10^3/uL (4.5-11.0)
--- NOTE | 2023-07-13 20:51 | DI.US.S_ITS ---
PROCEDURE: US OB <= 14 WEEKS FETUS INDICATIONS: CRAMPING, SPOTTING OUTSIDE/PRIOR DATING DATA: Last menstrual period (LMP): 06/04/2023. LMP-based estimated date of delivery (DUSTY): 03/10/2024. First dating scan (date and location): Today. Estimated date of delivery (DUSTY) from first dating scan: 03/06/2024. TECHNIQUE: Real-time scanning was performed of the fetus and maternal pelvic organs, with image documentation. Endovaginal scanning was also performed to better visualize the fetus and maternal ovaries. COMPARISON: [facility], OB <= 14 WEEKS FETUS, 05/04/2023, 13:04. FINDINGS: Yolk sac is seen. Heart motion is detected, with 112 beats per minute. [place]-rump length is 0.4 cm. Ultrasound age is 6 weeks and 1 day. Left corpus luteum is present. IMPRESSION: Intrauterine gestation at an ultrasound age of 6 weeks and 1 day, within concordance limits of reported LMP. heart motion is detected. Dictated by: London Carrera M.D. on 07/13/2023 at 22:41 Approved by: London Carrera M.D. on 07/13/2023 at 22:42
[2023-07-13 20:54] LABS: BUN Creatinine Ratio 15.5 (6-22); Blood Urea Nitrogen 9 mg/dL (7-17); Calcium 9.1 mg/dL (8.4-10.2); Carbon Dioxide 23 mmol/L (22-32); Chloride 103 mmol/L (98-107); Estimated Glomerular Filt Rate > 60 mL/min (>60); Glucose 79 mg/dL (70-100); HEMOLYSIS < 15 (0-50); Potassium 3.8 mmol/L (3.4-5.1); Sodium 135 mmol/L (137-145)
[2023-07-13 21:35] LABS: HCG Quantitative /Beta subunit 48933 mIU/mL
[2023-07-13 22:17] VITALS: BP 115/56; PULSE 73; RESP 18; TEMP 36.6; O2SAT 98
== END 2023-07-13 22:18 | disposition home or self-care (01) ==
PROVIDERS: Emergency Provider Emergency Medicine
DX: O20.9 Hemorrhage in early pregnancy, unspecified (principal); Z3A.01 Less than 8 weeks gestation of pregnancy
CPT/HCPCS: 76801; 76817; 80048; 81003; 84702; 85025; 99281; 99284

== ENCOUNTER 2023-09-18 00:06 | Emergency (ER) | payer OTHER, SELFPAY ==
[2023-09-18 00:21] VITALS: BP 146/95; PULSE 114; RESP 16; TEMP 36.6; O2SAT 100; BMI 21.6
[2023-09-18 00:58] LABS: Pregnancy Test Urine Positive (Negative)
[2023-09-18 01:04] LABS: Appearance Urine UA CLEAR; Bilirubin Urine UA NEGATIVE (NEGATIVE); Color Urine UA YELLOW; Glucose Urine UA NEGATIVE (Negative); Ketones Urine UA NEGATIVE (NEGATIVE); Leukocyte Esterase Urine UA NEGATIVE (NEGATIVE); Nitrite Urine UA NEGATIVE (Negative); Occult Blood Urine UA NEGATIVE (Negative); Protein Urine UA 2+ (Negative); Specific Gravity Urine UA 1.015 (1.000-1.035); Urobilinogen Urine UA 0.2 E.U./dL (0.2); pH Urine UA 7.5 (4.5-8.0)
[2023-09-18 01:05] LABS: UR Morphine/Opiate cutoff 300 Negative (Negative); Ur Creatinine Normal (Normal); Ur Specific Gravity Normal (Normal); Urine Amphetamines Negative (Negative); Urine Barbiturates Negative (Negative); Urine Benzodiazepines Negative (Negative); Urine Cocaine Negative (Negative); Urine MDMA Negative (Negative); Urine Methadone Negative (Negative); Urine Methamphetamines Negative (Negative); Urine Oxycodone Negative (Negative); Urine Phencyclidine Negative (Negative); Urine Tetrahydrocannabinol Negative (Negative); Urine Tricyclic Antidepressant Negative (Negative); Urine pH Normal (Normal)
[2023-09-18 01:21] LABS: Bacteria Urine Occasional (0-1); Culture Indicated Urine Cult Not Indicated; RBC Urine 0-1/HPF (0-5/HPF); Squamous Epithelial Cell Urine 0-1 /HPF (0-5/HPF); WBC Urine 0-1/HPF (0-5/HPF)
--- NOTE | 2023-09-18 01:42 | DI.US.S_ITS ---
PROCEDURE: US PELVIC COMPLETE INDICATIONS: SURGICAL AB 08/25. LIGHTHEADNESS/POSITIVE URINE . TECHNIQUE: Real-time scanning was performed of the pelvic organs, with image documentation. Additional endovaginal scanning was necessary due to incomplete visualization of the adnexal and endometrial structures by transabdominal scanning. COMPARISON: None. FINDINGS: Uterus: Uterus is anteverted and normal in size at 7.9 x 6.3 x 4.9 cm. The myometrium is heterogeneous. The endometrium measures 13.9 mm with complex fluid and increased vascularity. Ovaries: The right ovary measures 4.5 x 2.1 x 2.2 cm cm, with a calculated ovarian volume of 10.9 cc. The left ovary measures 4.1 x 3.2 x 1.7 cm cm, with a calculated ovarian volume of 11.6 cc. Left ovary contains a 1.8 x 1.5 x 1 cm heterogeneous cyst. Additional cyst with surrounding increased vascularity suggestive corpus luteal cyst.. Less than 12 follicles can be seen in each ovary. No adnexal masses are seen. Other: No pathologic free abdominal or pelvic fluid. IMPRESSION: 1. No intrauterine is identified. Recommend clinical and laboratory correlation. 2. Heterogeneous endometrial stripe with complex fluid suggestive of retained products of conception. 3. Heterogeneous left appearing cyst may represent hemorrhagic cyst versus collapsing follicle. Consider follow-up in 6-8 weeks if clinically warranted. Findings and impressions are congruent with overnight interpretation. Approved by: Leland Tomas M.D. on 09/18/2023 at 8:41
--- NOTE | 2023-09-18 01:42 | ED_ITS ---
HPI - General Adult General Chief complaint: Toxicology Problem Stated complaint: 1 beer feels intoxicated wants to be checked out Time Seen by Provider: 09/18/23 00:34 Source: patient Mode of arrival: Ambulatory History of Present Illness HPI narrative: Patient is a 28-year-old female. On August 25 she underwent an elective surgical . She states that the procedure went well. She was bleeding until about 5 days ago. She is not currently having any abdominal pain, nausea vomiting, vaginal bleeding or discharge. She states last evening she did drink 1 beer. She did not drink anything more than that and did not take any other substance. She woke up feeling lightheaded/dizzy. She came in to be ?checked out? Related Data Allergies Allergy/AdvReac Type Severity Reaction Status Date / Time No Known Drug Allergies Allergy Verified 06/25/23 18:42 Review of Systems Constitutional Constitutional: Reports system reviewed and no additional complaints, except as documented Cardiovascular Cardiovascular: Reports system reviewed and no additional complaints, except as documented Respiratory Respiratory: Reports system reviewed and no additional complaints, except as documented Gastrointestinal Gastrointestinal: Reports system reviewed and no additional complaints, except as documented Genitourinary Genitourinary: Reports system reviewed and no additional complaints, except as documented Integumentary/Breasts Skin/Breast: Reports system reviewed and no additional complaints, except as documented Neurologic Neurologic: Reports system reviewed and no additional complaints, except as documented Patient History Social History Smoking Status: Former smoker Smoking Status: Former smoker tobacco type: vaping alcohol intake frequency: 0-2 drinks per day Substance Use Type: does not use Exam Initial Vital Signs Initial Vital Signs: Vital Signs Temperature 97.8 F 09/18/23 00:21 Pulse Rate 114 H 09/18/23 00:21 Respiratory Rate 16 09/18/23 00:21 Blood Pressure 146/95 H 09/18/23 00:21 Pulse Oximetry 100 09/18/23 00:21 Oxygen Delivery Method Room Air 09/18/23 00:21 Const General: cooperative, comfortable and No ill appearing HENMT Head: normal to inspection and normocephalic Resp Effort & Inspection: normal respiratory effort Cardio Rate: tachycardic GI Inspection: normal to inspection Neuro General: patient alert, patient awake and moves all extremities Extrem General: normal to inspection Course Orders Ordered: ED Orders 09/18/23 00:31 Test Urine Stat 09/18/23 00:50 Urinalysis and Microscopic Stat Urine Drug Screen, Rapid Stat 09/18/23 01:40 ABO RH Type Stat Basic Metabolic Panel Stat Complete Blood Count AUTO DIFF Stat Ethanol (ETOH) Stat HCG Quantitative /Beta subunit Stat 09/18/23 01:42 US pelvic complete Stat Discontinued Medications Nicotine (Nicotine 21 Mg Patch) 21 mg TOP NOW ONE Stop: 09/18/23 03:11 Last Admin: 09/18/23 03:18 Dose: 21 mg Documented By: MILADYS Vital Signs Vital signs: Vital Signs - 8 hr 09/18/23 00:21 Temperature 97.8 F Pulse Rate 114 H Respiratory Rate 16 Blood Pressure 146/95 H Pulse Oximetry 100 Oxygen Delivery Method Room Air Medical Decision Making Lab Data 09/18/23 01:40 09/18/23 01:40 Labs: Lab Results 09/18/23 09/18/23 09/18/23 Range/Units 00:31 00:50 01:40 WBC 5.9 (4.5-11.0) X10^3/uL RBC 4.01 (4.0-5.2) X10^6/uL Hgb 12.0 (12.0-16.0) g/dL Hct 36.3 (36-46) % MCV 90.5 (80-100) fL MCH 29.9 (26-34) PG MCHC 33.0 (30-36) % RDW 13.8 (11.6-14.8) % Plt Count 144 L (150-400) X10^3/uL Neut % (Auto) 39.7 L (50-75) % Lymph % (Auto) 37.9 (25-40) % [place] % (Auto) 10.4 (3-14) % Eos % (Auto) 10.9 H (2-4) % Baso % (Auto) 1.1 (0-2) % Neut # (Auto) 2400 (4507-3494) /uL Lymph # (Auto) 2200 (3022-1590) /uL [place] # (Auto) 600 (0-900) /uL Eos # (Auto) 600 H (0-450) /uL Baso # (Auto) 100 (0-100) /uL Sodium 138 (137-145) mmol/L Potassium 4.0 (3.4-5.1) mmol/L Chloride 107 (98-107) mmol/L Carbon Dioxide 21 L (22-32) mmol/L BUN 11 (7-17) mg/dL Creatinine 0.60 (0.52-1.04) mg/dL Estimated GFR > 60 (>60) mL/min BUN/Creatinine Ratio 18.3 (6-22) Glucose 87 (70-100) mg/dL Calcium 9.5 (8.4-10.2) mg/dL HCG, Quant 38.9 mIU/mL Urine Color Yellow Urine Appearance Clear Urine pH 7.5 (4.5-8.0) Ur Specific [place] 1.015 (1.000-1.035) Urine Protein 2+ H (Negative) Urine Glucose (UA) Negative (Negative) g/dL Urine Ketones Negative (NEGATIVE) Urine Occult Blood Negative (Negative) Urine Nitrate Negative (Negative) Urine Bilirubin Negative (NEGATIVE) Urine Urobilinogen 0.2 (0.2) E.U./dL Ur Leukocyte Esterase Negative (NEGATIVE) Urine RBC 0-1/hpf (0-5/HPF) Urine WBC 0-1/hpf (0-5/HPF) Ur Squamous Epith Cells 0-1 /hpf (0-5/HPF) Urine Bacteria Occasional (0-1) (None) Ur Culture Indicated? Cult not indicated Urine Test Positive H (Negative) U Opiates 300ng/mL cut Negative (Negative) Ur Oxycodone Screen Negative (Negative) Urine Methadone Screen Negative (Negative) Ur Barbiturates Screen Negative (Negative) U Tricyclic Antidepress Negative (Negative) Ur Phencyclidine Scrn Negative (Negative) Ur Amphetamines Screen Negative (Negative) U Methamphetamines Scrn Negative (Negative) Ur MDMA Scrn (Ecstasy) Negative (Negative) U Benzodiazepines Scrn Negative (Negative) Urine Cocaine Screen Negative (Negative) U Marijuana (THC) Screen Negative (Negative) Ethyl Alcohol < 10 ( - 10) mg/dL Blood Type A Positive Imaging Data US - OB: Radiologist's Impression: Lobulated heterogeneous endometrial stripe with no normal IUP may represent incomplete spontaneous 1.8 cm complex cyst MDM Narrative Medical decision making narrative: Patient has a negative UDS and a negative alcohol. Her labs are unremarkable. She did have a positive urine test. She is Rh positive. Quant is just under 40. Ultrasound shows lobulated heterogeneous endometrial stripe with no normal IUP. I did discuss the case with Dr. Llamas with security engineer who stated that patient should follow-up with her OB doctor. Needs a repeat quant. No indication for emergent D and C. I did discuss this with the patient. She does have an OB provider and I advised that she contact them on Wednesday for a follow- up. She was given strict return precautions. No further workup required in the emergency department Discharge Plan Departure Patient Disposition: Home Clinical Impression: Dizziness Activity Restrictions/Additional Instructions: So it was found on your workup today that your test is still positive. After discussion with our on-call marina manager he recommended that you contact your OB provider on Wednesday for follow-up to have a repeat hCG quantitative level drawn. This can be done as an outpatient. Your urine drug screen today was negative. Your alcohol was negative as well. Contact your primary doctor for a follow-up. Referrals: ProviderArcelia [Primary Care Provider] - Stand Alone Forms: Patient Portal/API
[2023-09-18 01:55] LABS: Add Manual Diff / Slide Review NO; Basophils Absolute Auto 100 /uL (0-100); Basophils Percent Auto 1.1 % (0-2); Eosinophils Absolute Auto 600 /uL (0-450); Eosinophils Percent Auto 10.9 % (2-4); Hematocrit 36.3 % (36-46); Lymphocytes Absolute Auto 2200 /uL (1100-4500); Lymphocytes Percent Auto 37.9 % (25-40); Mean Corpuscular Hemoglobin 29.9 PG (26-34); Mean Corpuscular Volume 90.5 fL (80-100); Monocytes Absolute Auto 600 /uL (0-900); Monocytes Percent Auto 10.4 % (3-14); Neutrophils Absolute Auto 2400 /uL (1500-7000); Neutrophils Percent Auto 39.7 % (50-75); Platelet Count 144 X10^3/uL (150-400); Red Blood Cell Count 4.01 X10^6/uL (4.0-5.2); Red Cell Distribution Width 13.8 % (11.6-14.8); White Blood Cell Count 5.9 X10^3/uL (4.5-11.0)
[2023-09-18 02:05] LABS: BUN Creatinine Ratio 18.3 (6-22); Blood Urea Nitrogen 11 mg/dL (7-17); Calcium 9.5 mg/dL (8.4-10.2); Carbon Dioxide 21 mmol/L (22-32); Chloride 107 mmol/L (98-107); Estimated Glomerular Filt Rate > 60 mL/min (>60); Ethanol (ETOH) < 10 mg/dL; Glucose 87 mg/dL (70-100); HEMOLYSIS < 15 (0-50); Sodium 138 mmol/L (137-145)
[2023-09-18 02:26] LABS: HCG Quantitative /Beta subunit 38.9 mIU/mL
[2023-09-18] MEDS: NICOTINE 21 MG PATCH TOP (03:18)
--- NOTE | 2023-09-18 03:36 | PC.NURSE ---
Pt had a on aug 25. states had been bleeding off and on for past couple of weeks. states has stopped bleeding about 5 days ago. states tonight she woke up and felt dizzy upon waking.
[2023-09-18 04:28] VITALS: BP 125/72; PULSE 72; RESP 18; TEMP 37.2; O2SAT 99
== END 2023-09-18 04:32 | disposition home or self-care (01) ==
PROVIDERS: Emergency Provider Emergency Medicine
DX: R42 Dizziness and giddiness (principal); Z32.01 Encounter for pregnancy test, result positive
CPT/HCPCS: 36415; 76830; 76856; 80048; 80305; 80320; 81001; 81025; 84702; 85025; 86900; 86901; 99283